=== PATIENT | female | born 1985 | race Caucasian/White ===

== ENCOUNTER → 2017-09-27 | Day surgery (SDC) | payer OTHER ==
--- NOTE | 2017-09-28 14:51 | PATH ---
Cytology Non-Gynecological Report Patient Name: MERRITT LYNN [facility]. Rec. #: [id number] /Age/Gender: 1985 (Age: 31) / F Account: [id number] Location: RADIOLOGY INTER Taken: 09/27/2017 Received: 09/27/2017 Reported: 09/28/2017 Physicians: Lokesh Blake Specimen(s) Received THYROID FNA RIGHT Clinical History Right thyroid nodule, 2.01 x 1.42 x 1.64 cm Final Diagnosis THYROID, RIGHT, FINE NEEDLE ASPIRATION: SATISFACTORY FOR EVALUATION. BETHESDA CLASS II: BENIGN. CYTOLOGIC FINDINGS ARE CONSISTENT WITH A BENIGN FOLLICULAR NODULE. FEW SMALL FOLLICULAR CELLS AND ABUNDANT COLLOID PRESENT. Electronically Signed Constanza Mac M.D. Gross Description Received are eight direct smears, four of which are air-dried and Diff-Quik stained, and four of which are alcohol fixed and Pap stained. Also received is 20 ml of bloody formalin from which one cellblock is prepared.
== END | disposition home or self-care (01) ==
LOC: JRADIR 09:35
PROVIDERS: ATTEND Legal Medicine
PROC: 0G9H3ZX Drainage of Right Thyroid Gland Lobe, Percutaneous Approach, Diagnostic (ICD-10-PCS; principal; 2017-09-27)
DX: E04.1 Nontoxic single thyroid nodule (principal)
CPT/HCPCS: 76942; 88173; 88305-TC

== ENCOUNTER 2018-06-24 07:59 | Emergency (ER) | payer OTHER ==
[2018-06-24 08:03] VITALS: BP 141/98; PULSE 83; TEMP 98.8; BMI 29.0
--- NOTE | 2018-06-24 08:10 | PDOC ---
History of Present Illness - General Chief Complaint: Palpitations Stated Complaint: HEART RACING Time Seen by Provider: 06/24/18 08:03 History Source: Patient Exam Limitations: No Limitations - History of Present Illness Initial Comments: 06/24/18 08:26 32 year old female c/ hx of thyroid nodule (last biopsy 2018 benign), OCD on zoloft 200 mg daily (2 100 mg tablets) presents with mild palpitations. The patient is starting to transition her zoloft from the morning to night. Yesterday morning, she took a 1 100 mg tablet and then forgot and took 2 100 mg tablet zoloft yesterday night. Woke up this morning, and felt some palpitations in the shower, but no other symptoms. Pt in the ED feels better coming to the ED. No chest pain, shortness of breath, nausea, vomiting, diarrhea, agitation, diaphoresis. Pt tried to call her psychiatrist, but was unable to get a hold of the doctor, so came to the ER. Past History - Past Medical History Allergies/Adverse Reactions: Allergies Allergy/AdvReac Type Severity Reaction Status Date / Time No Known Allergies Allergy Verified 06/24/18 08:01 Home Medications: Ambulatory Orders Sertraline HCl [Zoloft] 200 mg PO DAILY 06/24/18 CVA: No COPD: No CHF: No Psychiatric Problems: Yes - Immunization History Immunization Up to Date: Yes - Suicide/Smoking/Psychosocial Hx Smoking History: Never smoked Hx Alcohol Use: Yes Drug/Substance Use Hx: No Substance Use Type: None Review of Systems - Review of Systems Able to Perform ROS?: Yes Comments:: 06/24/18 08:09 GENERAL/CONSTITUTIONAL: [No fever or chills. No weakness. No weight change.] HEAD, EYES, EARS, NOSE AND THROAT: [No change in vision. No ear pain or discharge. No sore throat.] CARDIOVASCULAR: [No chest pain or shortness of breath.] + palpitations RESPIRATORY: [No cough, wheezing, or hemoptysis.] GASTROINTESTINAL: [No nausea, vomiting, diarrhea or constipation. No rectal bleeding.] GENITOURINARY: [No dysuria, frequency, or change in urination.] MUSCULOSKELETAL: [No joint or muscle swelling or pain. No neck or back pain.] SKIN AND BREASTS: [No rash or easy bruising.] NEUROLOGIC: [No headache, vertigo, loss of consciousness, or loss of sensation.] PSYCHIATRIC: [No depression or anxiety.] ENDOCRINE: [No increased thirst. No abnormal weight change.] HEMATOLOGIC/LYMPHATIC: [No anemia, easy bleeding, or history of blood clots.] ALLERGIC/IMMUNOLOGIC: [No hives or skin allergy. No latex allergy.] *Physical Exam - Vital Signs Last Vital Signs Temp Pulse Resp BP Pulse Ox 98.8 F 83 18 141/98 100 06/24/18 08:00 06/24/18 08:00 06/24/18 08:00 06/24/18 08:00 06/24/18 08:00 - Physical Exam Comments: 06/24/18 08:09 GENERAL: Awake, alert, and fully oriented, in no acute distress HEAD: No signs of trauma EYES: EOMI, sclera anicteric, conjunctiva clear ENT: Auricles normal inspection, hearing grossly normal, nares patent, Moist mucosa NECK: Normal ROM, supple LUNGS: Breath sounds equal, clear to auscultation bilaterally. No wheezes, and no crackles HEART: Regular rate and rhythm, normal S1 and S2, no murmurs, rubs or gallops ABDOMEN: Soft, nontender,. No guarding, no rebound. No masses EXTREMITIES: Normal range of motion, no edema. No clubbing or cyanosis. No cords, erythema, or tenderness NEUROLOGICAL: Cranial nerves II through XII grossly intact. Normal speech, normal gait SKIN: Warm, Dry, normal turgor, no rashes or lesions noted. Heart Score/ECG Review #1 ECG reviewed & interpreted by me at: 08:10 06/24/18 08:10 NSR 70, no std/nakia, normal axis, normal intervals, QTC 442 msec. Normal ECG Medical Decision Making - Medical Decision Making 06/24/18 08:09 Vital Signs Temp Pulse Resp BP Pulse Ox 98.8 F 83 18 141/98 100 06/24/18 08:00 06/24/18 08:00 06/24/18 08:00 06/24/18 08:00 06/24/18 08:00 32 year old female presents with accidental overdose of an additional 100 mg zoloft last night. Now asymptomatic. ECG is reassurring. Given high safety profile with zoloft as well as a slight increase in dosage, unlikely to be at risk for outcomes ie serotonin syndrome. No fevers, no rigidity, no clonus. Precautions given to the patient. Reassurance given. Follow up with psychiatrist. I discussed the physical exam findings, ancillary test results and final diagnoses with the patient. I answered all of the patient's questions. The patient was satisfied with the care received and felt comfortable with the discharge plan and treatment plan. The patient will call their primary care physician within 24 hours to arrange follow-up and will return to the Emergency Department with any new, persistant or worsening symptoms. *DC/Admit/Observation/Transfer Diagnosis at time of Disposition: Overdose Qualifiers: Encounter type: initial encounter Injury intent: accidental or unintentional Qualified Code(s): T50.901A - Poisoning by unspecified drugs, medicaments and biological substances, accidental (unintentional), initial encounter - Discharge Dispostion Disposition: HOME Condition at time of disposition: Good Decision to Admit order: No - Referrals - Patient Instructions Printed Discharge Instructions: Sertralina Additional Instructions: Your EKG is normal. It may take a day or two before your feel back to your normal state. Please follow up with your doctor. Call to schedule an appointment. - Post Discharge Activity Forms/Work/School Notes: Back to Work
--- NOTE | 2018-06-25 08:32 | EKG ---
Test Reason : Blood Pressure : / mmHG Vent. Rate : 070 BPM Atrial Rate : 070 BPM P-R Int : 120 ms QRS Dur : 102 ms QT Int : 410 ms P-R-T Axes : 068 062 058 degrees QTc Int : 442 ms NORMAL SINUS RHYTHM NORMAL ECG NO PREVIOUS ECGS AVAILABLE Confirmed by MD ZION, DELMI ([id number]) on 06/25/2018 8:32:10 AM Referred By: JOHN NAYLOR Confirmed By:DELMI DONOVAN MD
== END 2018-06-24 08:28 | disposition home or self-care (01) ==
LOC: FER 07:59
DX: T43.221A Poisoning by selective serotonin reuptake inhibitors, accidental (unintentional), initial encounter (principal); R00.2 Palpitations; Y92.009 Unspecified place in unspecified non-institutional (private) residence as the place of occurrence of the external cause; E04.1 Nontoxic single thyroid nodule; F42.9 Obsessive-compulsive disorder, unspecified
CPT/HCPCS: 93005; 99282-25

== ENCOUNTER → 2018-06-25 | Day surgery (SDC) | payer OTHER ==
[2018-06-25 10:10] LABS: BASO % 0.4 % (0-2.0); EOS % 1.6 % (0-4.5); HEMATOCRIT 40.1 % (32.4-45.2); HEMOGLOBIN 13.5 GM/dL (10.7-15.3); LYMPH % 27.1 % (8-40); MCH 30.2 pg (25.7-33.7); MCHC 33.8 g/dl (32.0-36.0); MEAN CELL VOLUME 89.4 fl (80-96); MONO % 8.6 % (3.8-10.2); NEUT % 62.3 % (42.8-82.8); PLATELET COUNT 261 K/MM3 (134-434); RBC 4.49 M/mm3 (3.60-5.2); RDW 12.9 % (11.6-15.6); WHITE BLOOD COUNT 7.1 K/mm3 (4.0-10.0)
[2018-06-25 10:46] LABS: ALBUMIN 4.1 g/dl (3.4-5.0); ALK PHOS 49 U/L (45-117); ANION GAP 8 MMOL/L (8-16); BILIRUBIN,TOTAL 0.4 mg/dL (0.2-1); BLOOD UREA NITROGEN 13 mg/dL (7-18); CALCIUM 9.2 mg/dL (8.5-10.1); CHLORIDE 105 mmol/L (98-107); CO2 27 mmol/L (21-32); CREATININE 0.7 mg/dL (0.55-1.3); GLUCOSE,RANDOM 91 mg/dL (74-106); POTASSIUM 4.3 mmol/L (3.5-5.1); SGOT/AST 13 U/L (15-37); SGPT/ALT 20 U/L (13-61); SODIUM 139 mmol/L (136-145); TOT PROT 7.4 g/dl (6.4-8.2)
--- NOTE | 2018-06-28 16:45 | PATH ---
Cytology Non-Gynecological Report Patient Name: MERRITT LYNN [facility] [place]. Rec. #: [id number] /Age/Gender: 1985 (Age: 32) / F Account: [id number] Location: RADIOLOGY INTER Taken: 06/25/2018 Received: 06/25/2018 Reported: 06/28/2018 Physicians: Lokesh Blake M.D. Specimen(s) Received THYROID FNA Clinical History Thyroid nodule Final Diagnosis THYROID, LEFT, FINE NEEDLE ASPIRATION: SATISFACTORY FOR EVALUATION BETHESDA CLASS II: BENIGN FOLLICULAR CELLS WITH NO SIGNIFICANT ATYPIA, MANY MACROPHAGES, AND COLLOID PRESENT, CONSISTENT WITH A BENIGN FOLLICULAR NODULE. Electronically Signed Michelet Coleman M.D. Gross Description Received are eight direct smears, four of which are air-dried and Diff-Quik stained, and four of which are alcohol fixed and Pap stained. Also received is 20 ml of bloody formalin from which one cellblock is prepared.
== END | disposition home or self-care (01) ==
LOC: JRADIR 09:15 → EDSTATUS 09:30
PROVIDERS: ATTEND Internal Medicine Endocrinology, Diabetes & Metabolism
PROC: 0G9K3ZX Drainage of Thyroid Gland, Percutaneous Approach, Diagnostic (ICD-10-PCS; principal; 2018-06-25)
DX: E04.1 Nontoxic single thyroid nodule (principal)
CPT/HCPCS: 10005; 36415; 76942; 80053; 84436; 84439; 84443; 85025; 86376; 86800; 88173; 88305-TC

== ENCOUNTER → 2024-12-24 | Day surgery (SDC) | payer OTHER ==
[2024-12-24 10:48] LABS: MCHC 32.8 g/dl (32.2-35.5); MEAN CELL VOLUME 92.0 fl (79.4-94.8); MEAN PLT VOLUME 9.7 fl (9.4-12.3); RDW 12.0 % (12.1-16.8)
[2024-12-24 10:57] LABS: INR 1.2 (0.83-1.09); PROTHROMBIN TIME (PATIENT) 13.1 SEC (9.7-13.0)
[2024-12-24 10:59] LABS: ACTIVATED PTT 31.1 SECONDS (25.2-36.5)
[2024-12-24 11:17] LABS: GLUCOSE,RANDOM 90 mg/dL (74-106)
[2024-12-24 11:19] LABS: CO2 22 mmol/L (21-32)
[2024-12-24 11:23] LABS: CREATININE 0.60 mg/dL (0.55-1.3)
== END | disposition home or self-care (01) ==
LOC: JRADIR 09:46
PROVIDERS: ATTEND Surgery
PROC: 0H98XZZ Drainage of Buttock Skin, External Approach (ICD-10-PCS; principal; 2024-12-24)
DX: S30.0XXA Contusion of lower back and pelvis, initial encounter (principal); X58.XXXA Exposure to other specified factors, initial encounter; Y93.89 Activity, other specified; Y99.8 Other external cause status
CPT/HCPCS: 10005; 36415; 76942-TC; 80048; 83036; 85027; 85610; 85730